=== PATIENT | male | born 1985 | race Caucasian/White ===

== ENCOUNTER 2017-07-15 20:52 | Emergency (ER) | payer BC ==
[~2017-07-15] VITALS: Ht 175.3 cm; Wt 70.0 kg
[~2017-07-15 20:52] MED LIST: OMEPRAZOLE
[2017-07-16 02:49] VITALS: BP 115/76
== END 2017-07-16 04:34 | disposition home or self-care (01) ==
LOC: ER 22:29
DX: K61.2 Anorectal abscess (principal); F17.200 Nicotine dependence, unspecified, uncomplicated; F12.10 Cannabis abuse, uncomplicated; Z88.0 Allergy status to penicillin; Z90.49 Acquired absence of other specified parts of digestive tract; Z98.890 Other specified postprocedural states
CPT/HCPCS: 99283